=== PATIENT | male | born 1990 | race Caucasian/White ===

== ENCOUNTER 2023-08-25 00:42 | Emergency (ER) | payer MEDICAID, SELFPAY ==
[2023-08-25 00:56] VITALS: BP 142/108; PULSE 110; O2SAT 98; BMI 21.5
--- NOTE | 2023-08-25 01:38 | PC.NURSE ---
decon in process with security
--- NOTE | 2023-08-25 01:41 | PC.NURSE ---
on the phone with pt's mother via slot machine mechanic. mother reporting she is worried about son, wants to go to court tomorrow to put him in a substance abuse program . mother Janelle Wheatley
[2023-08-25 01:44] VITALS: BP 148/81; PULSE 105; RESP 18; TEMP 36.6; O2SAT 100
[2023-08-25 02:20] LABS: MANUAL DIFF FLAG NO
[2023-08-25 02:21] LABS: Basophils Absolute Auto 0.1 X10*3/uL (0.0-0.2); Basophils Percent Auto 0.4 % (0-2); Eosinophils Percent Auto 0.2 % (0-4); Hematocrit 42.7 % (42.0-52.0); Hemoglobin 14.3 g/dl (14.0-18.0); Imm Gran Abs Auto 0.05 X10*3/uL (0.00-0.03); Imm Gran Pct Auto 0.3 % (0.0-0.4); Lymphocytes Absolute Auto 2.1 X10*3/uL (1.2-4.9); Lymphocytes Percent Auto 13.5 % (20-40); Mean Corpuscular HGB Conc 33.5 g/dl (31.0-36.0); Mean Corpuscular Hemoglobin 29.8 pg (27.0-33.0); Mean Platelet Volume 9.7 fL (9.4-12.4); Monocytes Absolute Auto 1.4 X10*3/uL (0.1-1.2); Monocytes Percent Auto 9.1 % (2-11); Neutrophils Absolute Auto 11.6 x10*3/uL (2.0-8.3); Neutrophils Percent Auto 76.5 % (45-73); Platelet Count 276 X10*3/uL (160-400); Red Cell Distribution Width 12.2 % (11.0-16.0); White Blood Count 15.2 X10*3/uL (4.8-10.8)
[2023-08-25 02:37] LABS: Alanine Aminotransferase 12 U/L (0-40); Albumin Level 4.5 g/dL (3.5-5.0); Alkaline Phosphatase 55 U/L (39-117); Anion Gap 14 (12-20); Aspartate Amino Transferase 23 U/L (5-37); Bilirubin Total 0.6 mg/dL (0.0-1.0); Blood Urea Nitrogen 18 mg/dL (9-16); Calcium 9.5 mg/dL (8.4-10.2); Carbon Dioxide 23 mmol/L (22-29); Chloride 106 mmol/L (96-108); Creatinine Clr Calc Pharmacy 106.7; Estimated Glomerular Filt Rate > 60; Glucose Random 95 mg/dL (60-115); Lipase 9 U/L (8-78); Potassium 3.7 mmol/L (3.3-5.1); Sodium 139 mmol/L (135-145); Total Protein 7.7 g/dL (6.5-8.0)
[2023-08-25 02:59] VITALS: PULSE 101; O2SAT 99
--- NOTE | 2023-08-25 03:02 | PC.NURSE ---
pt resting comfortably with eyes closed, breathing even and unlabored. no apparent distress at this time. 02 99%
--- NOTE | 2023-08-25 03:49 | MHC.EDTECH ---
PT [facility] in [facility]
[2023-08-25 05:18] VITALS: PULSE 86; RESP 16; O2SAT 98
[2023-08-25 06:18] VITALS: BP 127/70; PULSE 80; RESP 16; O2SAT 99
--- NOTE | 2023-08-25 06:50 | ED.PSYCH ---
HPI - Psych General Chief Complaint: Psychiatric Symptoms Stated Complaint: Hallucinations Time Seen by Provider: 08/25/23 06:35 Source: patient, EMS, RN notes reviewed and old records reviewed Mode of arrival: EMS History of Present Illness HPI Narrative: 33-year-old male with no significant past medical history presenting to the ED via EMS from home complaining of auditory hallucinations. Patient admits to using heroin, denies other illicit substances or EtOH. Denies visual hallucinations, SI/HI. Denies recent injury/fall or trauma, abdominal pain, nausea/vomiting. Denies currently being prescribed any medications Related Data Allergies Allergy/AdvReac Type Severity Reaction Status Date / Time No Known Allergies Allergy Unverified 06/08/20 18:06 [No Known Allergies*] Review of Systems Review of Systems: Constitutional: No Fever, No Chills, No Night Sweats, No Fatigue, No Malaise ENT/Mouth: No Ear Pain, No Nasal Congestion, No sore throat, No Rhinorrhea, No Swallowing Difficulty Eyes: No Eye Pain, No Swelling, No Redness Cardiovascular: No Chest Pain, No SOB, No Palpitations Respiratory: No Cough, No Sputum, No Dyspnea Gastrointestinal: No Nausea, No Vomiting, No Abdominal pain Genitourinary: No Dysuria, No Hematuria, No Urgency, No Flank Pain Musculoskeletal: No joint pain, No Myalgias, No Joint Swelling Skin: No Skin Lesions, No rash Neuro: No Weakness, No Loss of Consciousness, No Dizziness, No Headache Psych: No Anxiety/Panic, No Depression, No SI/HI, +AH, No VH, No Social Issues Yes all other systems are reviewed and are negative Constitutional: Constitutional: Reports as per [facility] Past Medical History Attestation statement: The following information was validated with the patient. Source: old records reviewed Social History Social History Smoked in Last 30 Days: Yes Use of substances other than those prescribed or required for medical reasons: Yes Substance Use Type: Crack/Cocaine and Heroin Substance Use Frequency: Daily Last Used Substance: Hours (ago) Advance Directives: No Advance Directives Information Provided: No Physical Exam Vital Signs: Vital Signs: Last Vital Signs Temp 97.9 F 08/25/23 01:44 Pulse 80 08/25/23 06:18 Resp 16 08/25/23 06:18 BP 127/70 12/04/23 06:18 Pulse Ox 99 08/25/23 06:18 O2 Del Method Room Air 08/25/23 06:18 BMI result Body Mass Index 21.5 Const: General: cooperative, healthy appearing and no acute distress Orientation/consciousness: patient oriented x3 Limitations: no limitations HEENT: Head: Yes normal to inspection and Yes atraumatic Ears: hearing grossly normal bilaterally General nose exam: Normal external nose present Face and sinus: Yes normal facial exam Eyes: General: appearance normal, both eyes and all related structures EOM: EOMs intact bilaterally Neck: Neck: Yes normal visual inspection and Yes no meningeal signs Resp: Effort & Inspection: normal respiratory effort and no respiratory distress Cardio: Rate: regular rate GI: Inspection: Yes normal to inspection Palpation (GI): Soft to palpation, nontender, no guarding and not rigid Skin: Rashes: no rashes Wounds: no wounds Neuro: General: patient oriented x3, tone normal, moves all extremities, no meningeal signs and CN's II-XI intact bilaterally Cranial nerves: Yes CN's II-XII intact bilaterally Gait exam (Neuro): Normal gait present Extrem: General: Yes normal to inspection Psych: Thought content: suicidality, no homicidality and Hallucination(s) present auditory Course Course Course Narrative: -mild leukocytosis of 15.2. Labs otherwise reassuring -tox screen positive for opiates, fentanyl, benzos, and cocaine -0954--patient requesting discharge, states he feels better at present. Denies SI/HI or auditory/visual hallucinations at present. Stated to his nurse I do drugs. patient is not interested in detox, talking clear, awake and alert missing for discharge at this time. Patient will be discharged with Narcan to go home Results discussed with patient including worrisome signs and symptoms and strict return precautions, and when to return to the emergency department. They verbalized understanding and feel safe for discharge at this time. Medical Decision Making Medical Decision Making MDM Narrative: 33-year-old male with no significant past medical history presenting to the ED via EMS from home complaining of auditory hallucinations. On exam vital signs stable, NAD, nontoxic appearing, sleeping comfortably, denies SI/HI. Concern for polysubstance abuse vs psychiatric illness. Rule out organic causes Plan: Labs, tox screen, CARE consult Please refer to course for remaining clinical decision making, interpretation of labs/imaging results, and discussions with consultants and/or family members. Differential Diagnosis Differential Diagnoses: The differential diagnosis associated with the presentation includes As above Admission/Observation Consideration of admission/observation: Escalation of care including admission/observation considered Consult Healthcare Provider Management of the patient was discussed with: Behavioral Health Provider Lab Data MDM Lab Attestation statement: I reviewed the patient's lab results. 08/25/23 02:15 08/25/23 02:15 Labs: Lab Results 08/25/23 08/25/23 08/25/23 Range/Units 02:15 07:09 08:17 WBC 15.2 H (4.8-10.8) X10*3/uL RBC 4.80 (4.60-5.80) X10*6/uL Hgb 14.3 (14.0-18.0) g/dl Hct 42.7 (42.0-52.0) % MCV 89.0 (80.0-98.0) fL MCH 29.8 (27.0-33.0) pg MCHC 33.5 (31.0-36.0) g/dl RDW 12.2 (11.0-16.0) % Plt Count 276 (160-400) X10*3/uL MPV 9.7 (9.4-12.4) fL Immature Gran % (Auto) 0.3 (0.0-0.4) % Neut % (Auto) 76.5 H (45-73) % Lymph % (Auto) 13.5 L (20-40) % [place] % (Auto) 9.1 (2-11) % Eos % (Auto) 0.2 (0-4) % Baso % (Auto) 0.4 (0-2) % Lymph # (Auto) 2.1 (1.2-4.9) X10*3/uL [place] # (Auto) 1.4 H (0.1-1.2) X10*3/uL Eos # (Auto) 0.0 (0.0-0.4) X10*3/uL Baso # (Auto) 0.1 (0.0-0.2) X10*3/uL Abs Immat Gran (auto) 0.05 H (0.00-0.03) X10*3/uL Absolute Neuts (auto) 11.6 H (2.0-8.3) x10*3/uL Absolute Nucleated RBC 0.000 (0.0-0.012) X10*3/uL Nucleated RBC % (auto) 0.0 (0.0-0.2) /100WBC Sodium 139 (135-145) mmol/L Potassium 3.7 (3.3-5.1) mmol/L Chloride 106 (96-108) mmol/L Carbon Dioxide 23 (22-29) mmol/L Anion Gap 14 (12-20) BUN 18 H (9-16) mg/dL Creatinine 0.83 (0.5-1.4) mg/dL Estim Creat Clear Calc 106.7 Estimated GFR > 60 Random Glucose 95 (60-115) mg/dL Calcium 9.5 (8.4-10.2) mg/dL Total Bilirubin 0.6 (0.0-1.0) mg/dL AST 23 (5-37) U/L ALT 12 (0-40) U/L Alkaline Phosphatase 55 (39-117) U/L Total Protein 7.7 (6.5-8.0) g/dL Albumin 4.5 (3.5-5.0) g/dL Lipase 9 (8-78) U/L Salicylates < 5.0 L (15-30) mg/dL Urine Opiates Screen POSITIVE H (Not Detect) Urine Fentanyl Screen POSITIVE H (Not Detect) Acetaminophen < 3 (<30) mcg/mL Ur Barbiturates Screen Not Detected (Not Detect) Ur Phencyclidine Scrn Not Detected (Not Detect) Ur Amphetamines Screen Not Detected (Not Detect) U Benzodiazepines Scrn POSITIVE H (Not Detect) Urine Cocaine Screen POSITIVE H (Not Detect) U Marijuana (THC) Screen Not Detected (Not Detect) Ethyl Alcohol < 10 mg/dL Independent Historian Clinical information obtained from an independent historian. History obtained from or confirmed by: EMS External Record Review External record reviewed: Inpatient record, Office record, Outpatient record, Prior outpatient labs, Prior outpatient radiology, Primary care record and Outside ED record Tests considered The following testing was considered but not selected: As above Social Determinants Patient?s care significantly limited by Social Determinants of Health including: Low income, Alcoholism and drug addiction in family and Problems related to primary support group Discharge Plan Discharge Clinical Impression: Polysubstance abuse Patient Disposition: Home, Self-Care Instructions: Polysubstance Abuse (ED) Additional Instructions: Avoid drugs and alcohol this can kill you Continue home medications Follow-up with your doctor Referrals: [facility] [Provider Group] [facility] [Outside] Physician,Unknown J [Primary Care Provider] - Interventions: Bath-Suicide Risk Severity Scale Last Done: 08/25/23 09:18
--- NOTE | 2023-08-25 07:12 | PC.NURSE ---
patient awake, ambulated to bathroom with strong steady gait to provide urine sample. resting quietly on stretcher at this time
[2023-08-25 07:29] LABS: Amphetamine Screen Urine Not Detected (Not Detect); Barbiturates, Urine Not Detected (Not Detect); Benzodiazepines Screen Urine POSITIVE (Not Detect); Cannabinoid Screen Urine Not Detected (Not Detect); Cocaine Screen Urine POSITIVE (Not Detect); Fentanyl, urine POSITIVE (Not Detect); Opiate Screen Urine POSITIVE (Not Detect); Phencyclidine Screen Urine Not Detected (Not Detect)
[2023-08-25 08:40] LABS: Ethanol < 10 mg/dL
[2023-08-25 08:46] LABS: Acetaminophen LAB < 3 mcg/mL (<30); Salicylate < 5.0 mg/dL (15-30)
--- NOTE | 2023-08-25 09:18 | PC.NURSE ---
patient awake, respirations even and unlabored. denies si/hi. patient states he is no longer experiencing hallucinations and it only happens because I'm high . patient reporting that he is feeling good and not interested in detox.
[2023-08-25] MEDS: Naloxone HCl Nasal TAKE HOME 4 MG SPRAY 8 MG NOSTRILALT (10:15)
== END 2023-08-25 10:15 | disposition home or self-care (01) ==
PROVIDERS: Physician Assistant; Emergency Provider Emergency Medicine
DX: R44.0 Auditory hallucinations (principal); F11.10 Opioid abuse, uncomplicated; F14.10 Cocaine abuse, uncomplicated; Z79.899 Other long term (current) drug therapy
CPT/HCPCS: 36415; 80053; 80143; 80179; 80307; 83690; 85025; 99284

== ENCOUNTER 2023-08-31 05:59 | Emergency (ER) | payer MEDICAID, SELFPAY ==
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
[2023-08-31 06:02] VITALS: BP 118/73; PULSE 105; RESP 16; TEMP 36.7; O2SAT 100; BMI 23.3
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
[2023-08-31] MEDS: Acetaminophen 325 MG TABLET 650 MG PO (10:05)
== END 2023-08-31 10:07 | disposition home or self-care (01) ==
PROVIDERS: Emergency Provider Emergency Medicine Emergency Medical Services
DX: S20.211A Contusion of right front wall of thorax, initial encounter (principal); Y09 Assault by unspecified means; Y93.9 Activity, unspecified; Y92.9 Unspecified place or not applicable; Y99.9 Unspecified external cause status
CPT/HCPCS: 71101; 99283

== ENCOUNTER 2023-12-06 05:59 | Emergency (ER) | payer MEDICAID, SELFPAY ==
[2023-12-06 06:07] VITALS: BP 142/95; PULSE 89; RESP 16; TEMP 36.6; O2SAT 98; BMI 25.0
== END 2023-12-06 06:28 | disposition left against medical advice (07) ==
PROVIDERS: Emergency Provider Emergency Medicine
DX: S02.5XXA Fracture of tooth (traumatic), initial encounter for closed fracture (principal); X58.XXXA Exposure to other specified factors, initial encounter; Y93.9 Activity, unspecified; Y92.9 Unspecified place or not applicable; Y99.9 Unspecified external cause status; Z53.21 Procedure and treatment not carried out due to patient leaving prior to being seen by health care provider
CPT/HCPCS: 99281

== ENCOUNTER 2024-10-17 10:15 | Emergency (ER) | payer MEDICAID, SELFPAY ==
--- NOTE | ~2024-10-17 | CT_ITS ---
CLINICAL HISTORY: L nares epistaxis, L periotbital swell bruising CT maxillofacial without contrast Comparison: None Findings: Substantial motion artifact requiring repeat images. Repeat images are more diagnostic quality. Near-complete opacification of the right maxillary sinus with a occluded ostiomeatal complex. Mild mucoperiosteal thickening in the anterior ethmoids right slightly greater than left and in the floor of the left maxillary sinus and right sphenoid sinus. Slight thickening floor of hypoplastic right frontal sinus. Left mastoids hypoplastic with few opacified air cells. Right mastoids clear. No apparent sinus or mastoid hemorrhage. Six mm [id number] septal deviation. Turbinates intact. Mild multifocal thickening of the nasal mucosa. No acute fracture evident. Multiple dental caries most pronounced left maxillary molars and premolar. No appreciable odontogenic abscess. Globes and orbits intact. Clinical left periorbital swelling less apparent on CT. Globes intact. No infiltration of the retrobulbar fat. Symmetric extra-ocular muscles and optic nerves. Impression: Technically difficult study due to motion artifact. Multifocal chronic sinusitis most pronounced right maxillary sinus. 6 mm [id number] nasal septal deviation. Nonspecific thickening of the nasal mucosa. Dental caries most pronounced left maxillary molars and premolars. Globes and orbits intact. This document has been electronically signed by: Balbir Torres MD on 10/17/2024 12:12:29
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
[2024-10-17 10:51] VITALS: BP 138/92; BP 146/97; PULSE 115; PULSE 121; RESP 20; TEMP 37.3; O2SAT 97; O2SAT 99; BMI 17.3
[2024-10-17 11:11] VITALS: RESP 16
[2024-10-17] MEDS: LORazepam 0.5 MG TABLET PO (11:40)
[2024-10-17 11:48] LABS: Basophils Absolute Auto 0.1 X10*3/uL (0.0-0.2); Basophils Percent Auto 0.3 % (0-2); Hematocrit 44.8 % (42.0-52.0); Hemoglobin 15.3 g/dl (14.0-18.0); Imm Gran Pct Auto 0.6 % (0.0-0.4); Lymphocytes Absolute Auto 1.2 X10*3/uL (1.2-4.9); Lymphocytes Percent Auto 7.5 % (20-40); MANUAL DIFF FLAG SCAN; Mean Corpuscular HGB Conc 34.2 g/dl (31.0-36.0); Mean Corpuscular Hemoglobin 30.4 pg (27.0-33.0); Mean Corpuscular Volume 88.9 fL (80.0-98.0); Mean Platelet Volume 9.9 fL (9.4-12.4); Monocytes Absolute Auto 1.9 X10*3/uL (0.1-1.2); Monocytes Percent Auto 11.8 % (2-11); Neutrophils Absolute Auto 12.9 x10*3/uL (2.0-8.3); Neutrophils Percent Auto 79.8 % (45-73); Platelet Count 221 X10*3/uL (160-400); Red Blood Count 5.04 X10*6/uL (4.60-5.80); Red Cell Distribution Width 12.1 % (11.0-16.0); SCAN SMEAR FLAG 1; White Blood Count 16.1 X10*3/uL (4.8-10.8)
[2024-10-17 11:49] LABS: Alanine Aminotransferase 37 U/L (0-40); Albumin Level 4.7 g/dL (3.5-5.0); Alkaline Phosphatase 51 U/L (39-117); Anion Gap 17 (12-20); Aspartate Amino Transferase 73 U/L (5-37); Bilirubin Total 0.6 mg/dL (0.0-1.0); Blood Urea Nitrogen 20 mg/dL (9-16); Calcium 9.7 mg/dL (8.4-10.2); Carbon Dioxide 17 mmol/L (22-29); Chloride 107 mmol/L (96-108); Creatinine Clr Calc Pharmacy 48.7; Estimated Glomerular Filt Rate 54; Ethanol < 10 mg/dL; Glucose Random 100 mg/dL (60-115); Potassium 4.1 mmol/L (3.3-5.1); Sodium 137 mmol/L (135-145); Total Protein 8.8 g/dL (6.5-8.0)
--- NOTE | 2024-10-17 12:02 | PC.NURSE ---
Pt agitated, unable to maintain boundaries, entering other patient's room. attempting to exit the pod doors. Patient asking to leave every 30 seconds for the last 5-10 minutes. Pt unable to answer why he is here or repeat back requests from staff
--- NOTE | 2024-10-17 12:04 | PC.NURSE ---
Pt continues to attempt to exit pod, unable to follow directions from staff. Patient escorted to his room by PCT. Pt continues to attempt to exit room, requesting to leave. Storm, MAKI aware
[2024-10-17 12:07] LABS: SLIDE REVIEW VERIFIED
[2024-10-17 14:48] VITALS: BP 124/95; PULSE 85; RESP 20; TEMP 37.1; O2SAT 100
[2024-10-17 15:01] LABS: Appearance Urine Clear; Color Urine Yellow; Glucose Urine UA Negative (Negative); Leukocyte Esterase Urine Negative (Negative); Nitrite Urine Negative (Negative); PH 5.5 (5.0-9.0); Urine Blood Negative (Negative); Urine Ketones Trace mg/dL (Negative); Urine Protein Trace mg/dL (Neg-Trace)
[2024-10-17 15:10] LABS: Amphetamine Screen Urine Not Detected (Not Detect); Barbiturates, Urine Not Detected (Not Detect); Benzodiazepines Screen Urine Not Detected (Not Detect); Buprenorphine Scr Not Detected (Not Detect); Cannabinoid Screen Urine Not Detected (Not Detect); Cocaine Screen Urine POSITIVE (Not Detect); Fentanyl, urine POSITIVE (Not Detect); Methadone Screen, Urine Positive (Not Detect); Opiate Screen Urine POSITIVE (Not Detect); Oxycodone Screen Urine Not Detected (Not Detect); Phencyclidine Screen Urine Not Detected (Not Detect)
--- NOTE | 2024-10-17 16:58 | PC.NURSE ---
patient refusing blood draw. Two attempts made. Storm, PUBLIC HOUSING MANAGER aware
--- NOTE | 2024-10-17 17:06 | MHC.CARE ---
[facility]
--- NOTE | 2024-10-17 17:17 | PC.NURSE ---
pt refused take home narcan
[2024-10-17 18:01] VITALS: BP 136/66; PULSE 85; RESP 18; TEMP 36.4; O2SAT 99
== END 2024-10-17 18:02 | disposition home or self-care (01) ==
PROVIDERS: Emergency Medicine; Emergency Provider Emergency Medicine Emergency Medical Services
DX: R44.3 Hallucinations, unspecified (principal); R45.851 Suicidal ideations; F14.10 Cocaine abuse, uncomplicated; F11.10 Opioid abuse, uncomplicated; R51.9 Headache, unspecified; R04.0 Epistaxis; M79.642 Pain in left hand; M79.641 Pain in right hand; Z51.81 Encounter for therapeutic drug level monitoring; Z79.899 Other long term (current) drug therapy
CPT/HCPCS: 36415; 70450; 70486; 73120; 80053; 80307; 81003; 85025; 99285; S9485

== ENCOUNTER → 2024-10-17 10:52 | Outpatient (BNV) | payer MEDICAID, SELFPAY | PROVIDERS: Emergency Provider Emergency Medicine; Visit Provider Radiology Diagnostic Radiology | DX: R04.0 Epistaxis (principal); R41.82 Altered mental status, unspecified; R22.31 Localized swelling, mass and lump, right upper limb; R22.32 Localized swelling, mass and lump, left upper limb | CPT/HCPCS: 70450; 70486; 73120 ==